=== PATIENT | female | born 1940 | race Caucasian/White ===

== ENCOUNTER 2020-06-15 10:08 | Emergency (ER) | payer MEDICARE, BC ==
[~2020-06-15] VITALS: Ht 165.1 cm; Wt 68.2 kg
[~2020-06-15 10:08] MED LIST: HYDR-3965 PO; LORA1TAB PO; OCUVITE PO; omega 3 PO; prednisone PO; vitamin B-12 PO; vitamin D3 PO
[2020-06-15] MEDS ORDERED: LORazepam 2 mg/ml vial IV ONE (11:30)
[2020-06-15 12:43] LABS: BASOPHILS # (AUTO) 0.1 X10'3 (0-0.2); BASOPHILS % (AUTO) 0.4 % (0-1); EOSINOPHILS # (AUTO) 0.1 X10'3 (0-0.9); EOSINOPHILS % (AUTO) 0.5 % (0-6); HEMATOCRIT 41.1 % (35.0-45.0); HEMOGLOBIN 13.7 g/dl (12.0-16.0); LYMPHOCYTES % (AUTO) 8.2 % (21-51); MEAN CORPUSCULAR HGB CONC 33.2 g/dL (33.0-36.5); MEAN CORPUSCULAR VOLUME 96.2 FL (78-98); MEAN PLATELET VOLUME 8.3 FL (7.4-10.4); MONOCYTES # (AUTO) 0.5 X10'3 (0-0.9); MONOCYTES % (AUTO) 4.2 % (2-12); NEUTROPHILS # (AUTO) 10.9 X10'3 (1.8-7.7); NEUTROPHILS % (AUTO) 86.7 % (42-75); PLATELET COUNT 369 X10'3 (140-440); RED BLOOD COUNT 4.28 X10'6 (4.20-5.60); RED CELL DISTRIBUTION WIDTH 13.1 % (11.5-14.5); WHITE BLOOD COUNT 12.6 X10'3 (4.5-11.0)
[2020-06-15 13:03] LABS: ALANINE AMINOTRANSFERASE 55 U/L (12-78); ALBUMIN 3.7 G/DL (3.4-5.0); ALKALINE PHOSPHATASE 99 IU/L (46-116); ANION GAP 11 (8-16); ASPARTATE AMINO TRANSFERASE 37 U/L (10-37); BILIRUBIN,TOTAL 0.2 MG/DL (0.1-1.0); BLOOD UREA NITROGEN 13 MG/DL (7-18); BUN/CREATININE RATIO 12.3 (6.6-38.0); CALCIUM 8.8 MG/DL (8.5-10.1); CHLORIDE 101 MMOL/L (99-107); CREATININE 1.06 MG/DL (0.40-0.90); GLUCOSE 74 MG/DL (70-104); POTASSIUM 4.4 MMOL/L (3.5-5.1); SODIUM 136 MMOL/L (135-145); TOTAL CARBON DIOXIDE 24.5 MMOL/L (24-32); TOTAL PROTEIN 7.5 G/DL (6.4-8.2); eGFR 50 ML/MIN
--- NOTE | 2020-06-15 13:19 | NUR ---
Spoke with pt's daughter Sylwia and let her know that the pt is being discharged. Let her know that they need to make sure they keep the appointment with the psychiatrist next week. Pt's daughter verbalized understanding. Also explained to pt's daughter that we are not able to give the pt a prescription for Ativan because she cannot guarantee she will not drink.
[2020-06-15 13:39] VITALS: BP 133/73
== END 2020-06-15 13:42 | disposition home or self-care (01) ==
LOC: ER 10:09
DX: F10.129 Alcohol abuse with intoxication, unspecified (principal); G89.29 Other chronic pain; F32.9 Major depressive disorder, single episode, unspecified; Z90.89 Acquired absence of other organs; Z90.710 Acquired absence of both cervix and uterus; Z98.890 Other specified postprocedural states; Z72.89 Other problems related to lifestyle; Z88.2 Allergy status to sulfonamides; Z88.5 Allergy status to narcotic agent; Z79.899 Other long term (current) drug therapy; Y90.9 Presence of alcohol in blood, level not specified
CPT/HCPCS: 36415; 80053; 85025; 96374; 99284; J2060

== ENCOUNTER 2020-06-17 12:14 | Emergency (ER) | payer MEDICARE, BC ==
[~2020-06-17] VITALS: Ht 162.6 cm; Wt 65.9 kg
[2020-06-17 12:19] VITALS: BP 148/68
[2020-06-17] MEDS ORDERED: LORazepam 1 MG tablet PO STA (13:02)
[2020-06-17] MEDS ORDERED: LORA-269 PO (13:09)
== END 2020-06-17 13:32 | disposition home or self-care (01) ==
LOC: ER 12:14
DX: F41.0 Panic disorder [episodic paroxysmal anxiety] (principal); G89.29 Other chronic pain; F10.10 Alcohol abuse, uncomplicated; F32.9 Major depressive disorder, single episode, unspecified; Z90.49 Acquired absence of other specified parts of digestive tract; Z90.710 Acquired absence of both cervix and uterus; Z98.890 Other specified postprocedural states; Z90.89 Acquired absence of other organs; Z88.2 Allergy status to sulfonamides; Z88.5 Allergy status to narcotic agent; Z79.899 Other long term (current) drug therapy; Y90.9 Presence of alcohol in blood, level not specified
CPT/HCPCS: 99283

== ENCOUNTER 2022-01-12 22:18 | Emergency (ER) | payer MEDICARE, BC ==
[~2022-01-12] VITALS: Ht 160 cm; Wt 72.7 kg
[~2022-01-12 22:18] MED LIST changes: +LORA-269 PO
[2022-01-12] MEDS ORDERED: BUSP15TA3 (22:52)
[2022-01-12 23:20] LABS: ALANINE AMINOTRANSFERASE 23 U/L (12-78); ALBUMIN 3.6 G/DL (3.4-5.0); ALKALINE PHOSPHATASE 89 IU/L (46-116); ANION GAP 6 (8-16); ASPARTATE AMINO TRANSFERASE 19 U/L (10-37); BILIRUBIN,TOTAL 0.2 MG/DL (0.1-1.0); BLOOD UREA NITROGEN 13 MG/DL (7-18); BUN/CREATININE RATIO 11.8 (6.6-38.0); CHLORIDE 102 MMOL/L (99-107); GLUCOSE 123 MG/DL (70-104); POTASSIUM 3.5 MMOL/L (3.5-5.1); SODIUM 135 MMOL/L (135-145); TOTAL CARBON DIOXIDE 26.9 MMOL/L (24-32); TOTAL PROTEIN 7.3 G/DL (6.4-8.2); eGFR 48 ML/MIN
[2022-01-12 23:25] LABS: BASOPHILS # (AUTO) 0.1 X10'3 (0-0.2); BASOPHILS % (AUTO) 0.6 % (0-1); EOSINOPHILS # (AUTO) 0.2 X10'3 (0-0.9); EOSINOPHILS % (AUTO) 2.1 % (0-6); HEMATOCRIT 36.6 % (35.0-45.0); HEMOGLOBIN 12.3 g/dl (12.0-16.0); LYMPHOCYTES # (AUTO) 1.8 X10'3 (1.1-4.8); LYMPHOCYTES % (AUTO) 18.5 % (21-51); MEAN CORPUSCULAR HEMOGLOBIN 31.5 PG (27.0-31.0); MEAN CORPUSCULAR HGB CONC 33.5 g/dL (33.0-36.5); MEAN CORPUSCULAR VOLUME 94.1 FL (78-98); MEAN PLATELET VOLUME 8.5 FL (7.4-10.4); MONOCYTES # (AUTO) 0.9 X10'3 (0-0.9); NEUTROPHILS # (AUTO) 6.9 X10'3 (1.8-7.7); NEUTROPHILS % (AUTO) 69.8 % (42-75); PLATELET COUNT 350 X10'3 (140-440); RED BLOOD COUNT 3.89 X10'6 (4.20-5.60); RED CELL DISTRIBUTION WIDTH 13.3 % (11.5-14.5); WHITE BLOOD COUNT 9.8 X10'3 (4.5-11.0)
[2022-01-13] MEDS ORDERED: LORazepam 2 mg/ml vial IV ONE (02:00)
[2022-01-13] MEDS ORDERED: LORA-269 PO (02:46)
[2022-01-13 03:12] VITALS: BP 162/81
== END 2022-01-13 03:28 | disposition home or self-care (01) ==
LOC: ER 22:19
DX: F41.0 Panic disorder [episodic paroxysmal anxiety] (principal); R07.89 Other chest pain; G89.29 Other chronic pain; Z90.49 Acquired absence of other specified parts of digestive tract; Z90.710 Acquired absence of both cervix and uterus; Z72.89 Other problems related to lifestyle; Z88.2 Allergy status to sulfonamides; Z88.5 Allergy status to narcotic agent; Z88.8 Allergy status to other drugs, medicaments and biological substances; Z79.899 Other long term (current) drug therapy; Z95.5 Presence of coronary angioplasty implant and graft
CPT/HCPCS: 36415; 71045; 80053; 83880; 84484; 85025; 93005; 96374; 99285; J2060

== ENCOUNTER 2022-07-14 12:14 | Emergency (ER) | payer MEDICARE, BC ==
[~2022-07-14 12:14] MED LIST changes: +BUSP15TA3; -HYDR-3965 PO; -OCUVITE PO; -prednisone PO
[2022-07-14 13:18] VITALS: BP 155/76
[2022-07-14] MEDS ORDERED: LORazepam 1 MG tablet PO ONE (14:10)
[2022-07-14 15:24] LABS: CLARITY,URINE CLOUDY (Clear); COLOR,URINE YELLOW (Yellow); GLUCOSE, URINE NEGATIVE (Neg); KETONES,URINE NEGATIVE (Neg); LEUKOCYTE ESTERASE ,URINE NEGATIVE (Neg); NITRITES, URINE NEGATIVE (Neg); OCCULT BLOOD,URINE TRACE-INTACT (Neg); PH,URINE 5.5 (4.8-8.0); PROTEIN,URINE NEGATIVE (Neg); UROBILINOGEN,URINE 0.2 E.U/dL (0.2-1.0)
[2022-07-14 15:31] LABS: MUCUS STRANDS FEW /LPF (Neg); SQUAMOUS EPITHELIAL CELL,UR MANY /LPF (FEW); UA COLLECTION TYPE CLN CATCH MIDSTREAM
[2022-07-14 15:32] LABS: TRANSITIONAL EPI CELLS,URINE FEW /HPF
[2022-07-14 15:33] LABS: BACTERIA,URINE 1+ /HPF (Neg); RBC,URINE 0-2 /HPF (0-2); WBC,URINE 0-4 /HPF (0-4)
[2022-07-14 15:52] LABS: BASOPHILS # (AUTO) 0.1 X10'3 (0-0.2); BASOPHILS % (AUTO) 0.6 % (0-1); EOSINOPHILS % (AUTO) 0.1 % (0-6); HEMATOCRIT 38.8 % (35.0-45.0); HEMOGLOBIN 12.7 g/dl (12.0-16.0); LYMPHOCYTES # (AUTO) 1.1 X10'3 (1.1-4.8); LYMPHOCYTES % (AUTO) 7.9 % (21-51); MEAN CORPUSCULAR HEMOGLOBIN 30.9 PG (27.0-31.0); MEAN CORPUSCULAR HGB CONC 32.9 g/dL (33.0-36.5); MEAN CORPUSCULAR VOLUME 93.9 FL (78-98); MEAN PLATELET VOLUME 8.4 FL (7.4-10.4); MONOCYTES # (AUTO) 0.8 X10'3 (0-0.9); MONOCYTES % (AUTO) 5.7 % (2-12); NEUTROPHILS # (AUTO) 11.5 X10'3 (1.8-7.7); NEUTROPHILS % (AUTO) 85.7 % (42-75); PLATELET COUNT 398 X10'3 (140-440); RED BLOOD COUNT 4.13 X10'6 (4.20-5.60); RED CELL DISTRIBUTION WIDTH 12.8 % (11.5-14.5); WHITE BLOOD COUNT 13.4 X10'3 (4.5-11.0)
[2022-07-14 16:06] LABS: ALANINE AMINOTRANSFERASE 28 U/L (12-78); ALBUMIN 3.9 G/DL (3.4-5.0); ALKALINE PHOSPHATASE 104 IU/L (46-116); ANION GAP 6 (8-16); ASPARTATE AMINO TRANSFERASE 23 U/L (10-37); BILIRUBIN,TOTAL 0.4 MG/DL (0.1-1.0); BLOOD UREA NITROGEN 17 MG/DL (7-18); BUN/CREATININE RATIO 15.9 (6.6-38.0); CALCIUM 9.2 MG/DL (8.5-10.1); CHLORIDE 97 MMOL/L (99-107); CREATININE 1.07 MG/DL (0.40-0.90); GLUCOSE 112 MG/DL (70-104); POTASSIUM 4.2 MMOL/L (3.5-5.1); SODIUM 130 MMOL/L (135-145); TOTAL CARBON DIOXIDE 26.6 MMOL/L (24-32); eGFR 49 ML/MIN
[2022-07-14] MEDS ORDERED: LORazepam 2 mg/ml vial IM ONE (17:15)
[2022-07-14] MEDS ORDERED: ATI1T PO (17:23)
[2022-07-14] MEDS ORDERED: AZIT250T2 PO (17:23)
== END 2022-07-14 17:31 | disposition home or self-care (01) ==
LOC: ER 12:14
DX: F41.0 Panic disorder [episodic paroxysmal anxiety] (principal); R10.9 Unspecified abdominal pain; G89.29 Other chronic pain; M54.50 Low back pain, unspecified; Z87.09 Personal history of other diseases of the respiratory system; Z88.2 Allergy status to sulfonamides; Z98.890 Other specified postprocedural states; Z90.710 Acquired absence of both cervix and uterus
CPT/HCPCS: 36415; 80053; 81001; 85025; 96372; 99283; J2060

== ENCOUNTER 2024-11-01 12:15 | Outpatient (CLI) | payer MEDICARE, BC ==
[~2024-11-01 12:15] MED LIST changes: +ATI1T PO
--- NOTE | 2024-11-01 19:19 | RADIOLOGY REPORT ---
EXAM: MR MRI THORACIC SPINE INDICATION: LOW BACK PAIN, UNSPECIFIED TECHNIQUE: Multiplanar, multisequence imaging of the thoracic spine without contrast. COMPARISON: None FINDINGS: [ANATOMY]: Abnormal contour to areas of kyphosis of the upper thoracic spine and lower thoracic spine [BONES]: Status post prior kyphoplasty with cement material at T12. No MR evidence of an acute endpla te compression fracture. [CORD]: Impingement of the lower thoracic cord at T10-11 secondary to prominent ligamentum flavum [place] and trace broad-based disc protrusion [SPINAL CANAL]: Severe spinal canal as detailed above. No definitive abnormal thoracic cord signal [INTERVERTEBRAL DISCS]: Multilevel intervertebral disc height loss with broad-based posterior disc pr otrusion measuring 2-3 mm at T4-5, T5-6, T6-7, T7, T8-9, T9-10, T10-11 most conspicuous disc protrusi on with possible extrusion component at T8-9 measuring 9 mm in craniocaudal extent (series 6, image 2 ) [FACETS]: Normal alignment of the facets. [FORAMINA]: No significant foraminal narrowing. [OTHER]: Partially visualized severe confluence of T2 hypointensity in the white matter of the brain IMPRESSION: 1. Impingement of the lower thoracic cord at T10-11 secondary to prominent ligamentum flavum buckling and trace broad-based disc protrusion.
--- NOTE | 2024-11-01 19:42 | RADIOLOGY REPORT ---
EXAM: MR MRI LUMBAR SPINE INDICATION: LOW BACK PAIN, UNSPECIFIED TECHNIQUE: Multiplanar, multisequence MR images of the lumbar spine were obtained without the adminis tration of IV contrast. COMPARISON: None FINDINGS: [ANATOMY]: Five lumbar-type vertebral bodies are present. The most inferior well-formed disc space wi ll be referred to as L5-S1 for purposes of numbering in this report. [VERTEBRAL BODIES]: Prior kyphoplasty of T12. No abnormal bone marrow signal. No endplate compressio n fracture. [SPINAL CANAL]: The conus medullaris is normal in signal and morphology, terminating at the L1-L2 lev el. No significant lumbar spinal canal narrowing however multilevel effacement of the lateral recesse s [FACETS]: Mild bilateral multilevel facet arthropathy. [OTHER]: None. LEVEL BY LEVEL DISCUSSION: [T12-L1]: 2-3 mm broad-based posterior disc protrusion. [L1-L2]: Intervertebral disc height loss. Circumferential disc bulge with 3-4 mm posterior extension mild bilateral foraminal narrowing. [L2-L3]: Circumferential disc bulge with 3 mm posterior extension and posterior disc osteophyte compl ex. Mild narrowing [L3-L4]: Circumferential disc bulge with 4 mm posterior extension and asymmetric left foraminal exten betsey. [id number] bilateral foraminal narrowing [L4-L5]: Trace broad-based posterior disc protrusion measuring 2-3 mm. Mild bilateral facet arthropa thy. Moderate to severe rate bilateral foraminal narrowing. [L5-S1]: Intervertebral disc height loss. Trace circumferential disc bulge. Mild bilateral facet ar thropathy. [id number] bilateral foraminal narrowing. IMPRESSION: 1. Multilevel degenerative change as detailed above.
== END 2024-11-01 23:59 | disposition home or self-care (01) ==
LOC: MRI 12:15
PROVIDERS: ATTEND Anesthesiology Pain Medicine
DX: S22.000A Wedge compression fracture of unspecified thoracic vertebra, initial encounter for closed fracture (principal); M46.1 Sacroiliitis, not elsewhere classified; M80.08XA Age-related osteoporosis with current pathological fracture, vertebra(e), initial encounter for fracture; M48.04 Spinal stenosis, thoracic region; K42.9 Umbilical hernia without obstruction or gangrene; N83.201 Unspecified ovarian cyst, right side; M51.16 Intervertebral disc disorders with radiculopathy, lumbar region; M47.27 Other spondylosis with radiculopathy, lumbosacral region; M48.07 Spinal stenosis, lumbosacral region; M40.294 Other kyphosis, thoracic region; M25.80 Other specified joint disorders, unspecified joint; M51.24 Other intervertebral disc displacement, thoracic region; X58.XXXD Exposure to other specified factors, subsequent encounter
CPT/HCPCS: 72146; 72148